=== PATIENT | male | born 1950 | race Caucasian/White ===

== ENCOUNTER 2018-05-14 09:23 | Emergency (ER) | payer BC, OTHER ==
--- NOTE | 2018-05-14 09:57 | ER Document Report ---
ED Medical Screen (RME) - General Chief Complaint: Abdominal Pain >50 Stated Complaint: ABDOMINAL PAIN Time Seen by Provider: 05/14/18 09:47 Notes: RAPID MEDICAL EVALUATION DISCLOSURE I have seen this patient as part of a Rapid Medical Evaluation and, if applicable, placed any initially appropriate orders. The patient will be seen and fully evaluated, including a full history and physical exam, by a provider ( in Main ED or Fast Track) when a room becomes available. 67-year-old male PMH diabetes colitis sent here from the [facility] for further evaluation of his abdominal pain and diarrhea. Patient states that ever since he had a dental procedure one month ago, he has had episodes of diarrhea mixed with soft stools. He has intermittent diarrhea and abdominal pain that has been ongoing for the past 1 year however the change is that he is having more frequent diarrhea. His abdominal pain is present with and is worse with defecation but otherwise does not have any abdominal pain. He does not currently have any abdominal pain. He will sometimes have nausea without vomiting but rarely. EXAM No abdominal TTP No peritoneal signs TRAVEL OUTSIDE OF THE [place] IN LAST 30 DAYS: No - Related Data Allergies/Adverse Reactions: No Known Allergies Allergy (Verified 05/14/18 09:28) Past Medical History - Past Medical History Cardiac Medical History: Reports: Hx Hypertension Endocrine Medical History: Reports: Hx Diabetes Mellitus Type 2 Psychiatric Medical History: Denies: Hx Depression Past Surgical History: Reports: Hx Appendectomy, Hx Oral Surgery - wisdom teeth , Hx Tonsillectomy Physical Exam - Vital signs Vitals: Temp Pulse Resp BP Pulse Ox 98.4 F 79 16 170/75 H 96 05/14/18 09:31 05/14/18 09:05/14/18 09:05/14/18 09:31 05/14/18 09:31 Course - Vital Signs Vital signs: Temp Pulse Resp BP Pulse Ox 98.4 F 79 16 170/75 H 96 05/14/18 09:31 05/14/18 09:31 05/14/18 09:31 05/14/18 09:31 05/14/18 09:31 Doctor's Discharge - Discharge Referrals: ORAL GRIJALVA DO [Primary Care Provider] - Follow up as needed
[2018-05-14 10:33] LABS: ABSOLUTE EOSINOPHILS # (AUTO) 0.2 10^3/uL (0.0-0.6); ABSOLUTE LYMPHOCYTES (AUTO) 3.1 10^3/uL (0.5-4.7); ABSOLUTE MONOCYTES (AUTO) 0.8 10^3/uL (0.1-1.4); BASOPHILS % (AUTO) 0.5 % (0-2); EOSINOPHILS % (AUTO) 2.6 % (0-6); HEMATOCRIT 42.4 % (37.9-51.0); HEMOGLOBIN 14.8 g/dL (13.5-17.0); MEAN CORPUSCULAR HEMOGLOBIN 29.6 pg (27.0-33.4); MEAN CORPUSCULAR VOLUME 85 fl (80-97); PLATELET COUNT 282 10^3/uL (150-450); RED CELL DISTRIBUTION WIDTH 13.6 % (11.5-14.0); SEGMENTED NEUTROPHILS % (AUTO) 53.9 % (42-78); TOTAL CELLS COUNTED % (AUTO) 100 %; WHITE BLOOD COUNT 9.2 10^3/uL (4.0-10.5)
[2018-05-14 10:49] LABS: APPEARANCE,URINE CLEAR; BILIRUBIN,URINE NEGATIVE (NEGATIVE); COLOR,URINE YELLOW; GLUCOSE, URINE >=500 mg/dL (NEGATIVE); KETONES,URINE NEGATIVE (NEGATIVE); LEUKOCYTE ESTERASE,URINE NEGATIVE (NEGATIVE); NITRITE,URINE NEGATIVE (NEGATIVE); PROTEIN,URINE 100 mg/dL (NEGATIVE); URINE SPECIFIC GRAVITY 1.006; UROBILINOGEN,URINE NEGATIVE mg/dL (<2.0)
[2018-05-14 10:59] LABS: ALANINE AMINOTRANSFERASE 25 U/L (21-72); ALBUMIN 4.3 g/dL (3.5-5.0); ALKALINE PHOSPHATASE 77 U/L (38-126); ANION GAP 15 (5-19); ASPARTATE AMINO TRANSFERASE 20 U/L (17-59); BILIRUBIN,DIRECT 0.3 mg/dL (0.0-0.4); BILIRUBIN,TOTAL 0.4 mg/dL (0.2-1.3); BLOOD UREA NITROGEN 10 mg/dL (7-20); CALCIUM 10.6 mg/dL (8.4-10.2); CARBON DIOXIDE 26 mmol/L (22-30); CHLORIDE 100 mmol/L (98-107); GLUCOSE 180 mg/dL (75-110); SODIUM 140.9 mmol/L (137-145); TOTAL PROTEIN 7.3 g/dL (6.3-8.2)
--- NOTE | 2018-05-14 11:25 | ER Document Report ---
ED GI/ - General Mode of Arrival: Ambulatory Information source: Patient TRAVEL OUTSIDE OF THE [place] IN LAST 30 DAYS: No <BUSTER CAIN - Last Filed: 05/14/18 11:45> <OLESYA CESAR - Last Filed: 05/14/18 13:58> - General Chief Complaint: Abdominal Pain >50 Stated Complaint: ABDOMINAL PAIN Time Seen by Provider: 05/14/18 09:47 Notes: 67-year-old male who presents to the emergency department today with complaints of abdominal pain with associated diarrhea for the last month. Patient states that just prior to the diarrhea and abdominal pain beginning he finished a prescription for penicillin for a dental extraction. Patient states in 1977 he was told he might have ulcerative colitis. Patient states that he has tried Imodium for his diarrhea. Patient states when he takes Imodium it does relieve the diarrhea but as soon as he stops taking it the diarrhea comes back. Patient states he has abdominal cramps just prior to having diarrhea and after having a bowel movement the cramps seem to subside. Patient denies any fevers, joint aches, nausea, or vomiting. (BUSTER CAIN) - Related Data Allergies/Adverse Reactions: No Known Allergies Allergy (Verified 05/14/18 09:28) Past Medical History - General Information source: Patient - Social History Smoking Status: Former Smoker Cigarette use (# per day): No Chew tobacco use (# tins/day): No Frequency of alcohol use: None Drug Abuse: None Lives with: Family Family History: Reviewed & Not Pertinent, CAD Patient has suicidal ideation: No Patient has homicidal ideation: No - Past Medical History Cardiac Medical History: Reports: Hx Hypertension Endocrine Medical History: Reports: Hx Diabetes Mellitus Type 2 Past Surgical History: Reports: Hx Appendectomy, Hx Oral Surgery - wisdom teeth , Hx Tonsillectomy <BUSTER CAIN - Last Filed: 05/14/18 11:45> Review of Systems - Review of Systems Constitutional: denies: Fever EENT: No symptoms reported Cardiovascular: No symptoms reported Respiratory: No symptoms reported Gastrointestinal: See HPI, Abdominal pain, Diarrhea. denies: Nausea, Vomiting Genitourinary: No symptoms reported Male Genitourinary: No symptoms reported Musculoskeletal: denies: Joint pain Skin: No symptoms reported Hematologic/Lymphatic: No symptoms reported Neurological/Psychological: No symptoms reported -: Yes All other systems reviewed and negative <BUSTER CAIN - Last Filed: 05/14/18 11:45> Physical Exam <BUSTER CAIN - Last Filed: 05/14/18 11:45> <OLESYA CESAR - Last Filed: 05/14/18 13:58> - Vital signs Vitals: Temp Pulse Resp BP Pulse Ox 98.4 F 79 16 170/75 H 96 05/14/18 09:29 05/14/18 09:29 05/14/18 09:29 05/14/18 09:29 05/14/18 09:29 - Notes Notes: Physical Exam: General: Alert, appears well. Morbidly obese. HEENT: Normocephalic. Atraumatic. PERRL. Extraocular movements intact. Oropharynx clear. Neck: Supple. Non-tender. Respiratory: No respiratory distress. Clear and equal breath sounds bilaterally. Cardiovascular: Regular rate and rhythm. Abdominal: Obese. Minimal lateral abdominal tenderness with palpation bilaterally. No distension. Normal Bowel Sounds. Back: Non-tender. No deformity or step off. Extremities: Moves all four extremities. Upper extremities: Normal inspection. Normal ROM. Lower extremities: Normal inspection. No edema. Normal ROM. Neurological: Normal cognition. AAOx4. Normal speech. Psychological: Normal affect. Normal Mood. Skin: Warm. Dry. Normal color. (BUSTER CAIN) Course - Laboratory Result Diagrams: 05/14/18 10:05 05/14/18 10:05 <BUSTER CAIN - Last Filed: 05/14/18 11:45> - Laboratory Result Diagrams: 05/14/18 10:05 05/14/18 10:05 - Diagnostic Test Radiology reviewed: Reports reviewed - CT scan of the abdomen and pelvis do not show any acute findings. <OLESYA CESAR - Last Filed: 05/14/18 13:58> - Re-evaluation Re-evalutation: 05/14/18 13:[address] scan is unremarkable. The stool was negative for C. difficile and WBCs. (OLESYA CESAR) - Vital Signs Vital signs: Temp Pulse Resp BP Pulse Ox 97.3 F 73 16 141/56 H 96 05/14/18 13:40 05/14/18 13:40 05/14/18 09:31 05/14/18 13:40 05/14/18 13:40 - Laboratory Laboratory results interpreted by me: 05/14/18 05/14/18 05/14/18 10:05 10:05 10:05 ESR 25 H Glucose 180 H Hemoglobin A1c % Calcium 10.6 H Urine Protein 100 H Urine Glucose (UA) >=500 H 05/14/18 10:05 ESR Glucose Hemoglobin A1c % 7.8 H Calcium Urine Protein Urine Glucose (UA) Discharge <BUSTER CAIN - Last Filed: 05/14/18 11:45> <OLESYA CESAR - Last Filed: 05/14/18 13:58> - Discharge Clinical Impression: Irritable bowel syndrome with diarrhea Condition: Stable Disposition: HOME, SELF-CARE Additional Instructions: Irritable Bowel Syndrome The cause of irritable bowel syndrome is unknown. Although often called "colitis", it is not an infection or inflammatory condition. Symptoms vary, but can include periodic abdominal cramping, migratory abdominal pains, diarrhea, or constipation. Commonly, a few days of constipation is followed by loose stools, then constipation begins again. There is no specific test for irritable bowel syndrome. The disease is diagnosed by history and exam findings, and by finding no evidence of other disease. Irritable bowel syndrome is treated by making the stool softer and bulkier. Regular meals, including plenty of soluble fiber, help. Avoid foods which provoke cramping. Stool "bulking agents," such as Metamucil, help. Expect occasional flare-ups. Call the physician if symptoms worsen, such as severe or constant abdominal pain, fever, blood in the stool, increasing constipation, or more frequent or severe diarrhea. Try taking the Imodium A-D once to twice daily when the diarrhea is a problem and see if that is enough to control it. Follow-up with Dr. Martinez or Dr. Kraus if the diarrhea is not easily controlled. RETURN TO THE EMERGENCY ROOM IF ANY NEW OR WORSENING SYMPTOMS. Referrals: CHIP MARTINEZ MD [ACTIVE STAFF] - Follow up as needed GENET KRAUS MD [ACTIVE STAFF] - Follow up as needed Scribe Attestation: 05/14/18 12:00 I personally performed the services described in the documentation, reviewed and edited the documentation which was dictated to the scribe in my presence, and it accurately records my words and actions. (OLESYA CESAR) Scribe Documentation - Scribe Written by Scribe:: Lupe Birmingham, 05/14/2018 1153 acting as scribe for :: Philip <BUSTER CAIN - Last Filed: 05/14/18 11:45>
--- NOTE | 2018-05-14 11:50 | RADIOLOGY REPORT (SQ) ---
EXAM DESCRIPTION: CT ABD/PELVIS WITH IV ONLY COMPLETED DATE/TIME: 05/14/2018 11:34 am REASON FOR STUDY: abd pain diarrhea COMPARISON: None. TECHNIQUE: CT scan of the abdomen and pelvis performed using helical scanning technique with dynamic intravenous contrast injection. No oral contrast. Images reviewed with lung, soft tissue, and bone windows. Reconstructed coronal and sagittal MPR images reviewed. Delayed images for evaluation of the urinary system also acquired. All images stored on PACS. All CT scanners at this facility use dose modulation, iterative reconstruction, and/or weight based d osing when appropriate to reduce radiation dose to as low as reasonably achievable (ALARA). [facility]: Dose Right [facility]: CareDose [facility]: Dose Right [facility]: Teradose 4D [facility]: LikeAndy CONTRAST TYPE AND DOSE: contrast/concentration: Isovue 350.00 mg/ml; Total Contrast Delivered: 100.0 ml; Total Saline Delivered: 46.3 ml RENAL FUNCTION: GFR > 60. RADIATION DOSE: CT Rad equipment meets quality standard of care and radiation dose reduction techniq ues were employed. CTDIvol: 19.4 - 20.5 mGy. DLP: 2349 mGy-cm.. LIMITATIONS: None. FINDINGS: LOWER CHEST: No significant findings. No nodules or infiltrates. LIVER: Normal size. No masses. No dilated ducts. SPLEEN: Normal size. No focal lesions. PANCREAS: No masses. No significant calcifications. No adjacent inflammation or peripancreatic fluid collections. Pancreatic duct not dilated. GALLBLADDER: No identified stones by CT criteria. No inflammatory changes to suggest cholecystitis. ADRENAL GLANDS: No significant masses or asymmetry. RIGHT KIDNEY AND URETER: No solid masses. No significant calcifications. No hydronephrosis or hyd roureter. LEFT KIDNEY AND URETER: No solid masses. No significant calcifications. No hydronephrosis or hydr oureter. AORTA AND VESSELS: Diffuse atherosclerotic calcifications. No aneurysm. No high-grade stenosis. RETROPERITONEUM: No retroperitoneal adenopathy, hemorrhage or masses. BOWEL AND PERITONEAL CAVITY: No masses or inflammatory changes. No free fluid or peritoneal masses. APPENDIX: Surgically absent. PELVIS: No mass. No free fluid. Normal bladder. ABDOMINAL WALL: Fat containing umbilical hernia. BONES: No acute findings. OTHER: No other significant finding. IMPRESSION: NO ACUTE FINDING IN THE ABDOMEN OR PELVIS ON CT SCAN WITH IV CONTRAST. TECHNICAL DOCUMENTATION: JOB ID: [id number] Quality ID # [id number]: Final reports with documentation of one or more dose reduction techniques (e.g., Au tomated exposure control, adjustment of the mA and/or kV according to patient size, use of iterative reconstruction technique) 2010 [employer]- All Rights Reserved Reading location - IP/workstation name: [email or web address]
[2018-05-14 14:56] VITALS: BP 145/56
== END 2018-05-14 14:41 | disposition home or self-care (01) ==
LOC: ER 09:23
DX: K58.0 Irritable bowel syndrome with diarrhea (principal); R10.9 Unspecified abdominal pain; I10 Essential (primary) hypertension; E11.9 Type 2 diabetes mellitus without complications; E66.01 Morbid (severe) obesity due to excess calories; Z68.41 Body mass index [BMI] 40.0-44.9, adult; Z90.49 Acquired absence of other specified parts of digestive tract; Z87.891 Personal history of nicotine dependence
CPT/HCPCS: 36415; 74177; 80053; 81001; 83036; 83690; 84443; 85025; 85652; 87045; 87205; 87493; 89055; 99284